=== PATIENT | male | born 1990 | race Caucasian/White ===

== ENCOUNTER 2018-05-22 14:01 | Inpatient (IN) | payer OTHER ==
[2018-05-22 15:07] VITALS: BMI 19.9
--- NOTE | 2018-05-22 16:24 | HP ---
CIWA Score Nausea/Vomitin Muscle Tremors: None Anxiety: 4-Mod. Anxious/Guarded Agitation: 0-Normal Activity Paroxysmal Sweats: 2 Orientation: 0-Oriented Tacttile Disturbances: 4-Moderate Hallucinations Auditory Disturbances: 2-Mild Harshness/Frighten Visual Disturbances: 2-Mild Sensitivity Headache: 2-Mild CIWA-Ar Total Score: 21 - Admission Criteria OASAS Guidelines: Admission for Medically Managed Detox: Requires at least one of the followin. CIWA greater than 12 2. Seizures within the past 24 hours 3. Delirium tremens within the past 24 hours 4. Hallucinations within the past 24 hours 5. Acute intervention needed for co occurring medical disorder 6. Acute intervention needed for co occurring psychiatric disorder 7. Severe withdrawal that cannot be handled at a lower level of care (continued vomiting, continued diarrhea, abnormal vital signs) requiring intravenous medication and/or fluids 8. Admission ROS S - HPI Allergies/Adverse Reactions: Allergies Allergy/AdvReac Type Severity Reaction Status Date / Time No Known Allergies Allergy Verified 05/22/18 15:52 History of Present Illness: patient here requesting detox from etoh use , reports he binge- drinks between 4 -10 days , latest use yesterday 2-3 pints/day x 9 days , reports tremors and other symptoms as above if not drinking , drinks " any time of day " , drinking heavily since age 18, prior detox x 5-6 , most recently October 2017 @ [facility] , rehab x 6 , most recently October- Feb 2018 [facility] , relapse after d/c , reports blackouts while drinking , denies withdrawal seizures, + falls while intoxicated , denies injuries to self or others, does not drive, license suspended 1 yr ago in [place] , incarcerated x 6 months , does not have court pending . utox neg for all [place] 0.000 tobacco : denies pmhx : denies pshx :denies psych : denies shx : lives w/ mother and brother , does not work Exam Limitations: No Limitations - Ebola screening Have you traveled outside of the country in the last 21 days: No Have you had contact with anyone from an Ebola affected area: No Have you been sick,other than usual withdrawal symptoms: No Do you have a fever: No - Review of Systems Constitutional: See HPI EENT: reports: Other (no glasses , no vision issues) Respiratory: reports: No Symptoms reported Cardiac: reports: No Symptoms Reported GI: reports: See HPI : reports: Other (reports difficulty urinating since yesterday , feels weak all over his body) Musculoskeletal: reports: No Symptoms Reported Integumentary: reports: No Symptoms Reported Neuro: reports: Paresthesia, Tingling, Tremors Psychiatric: reports: Orientated x3, Anxious Patient History - Patient Medical History Hx Asthma: No Hx Chronic Obstructive Pulmonary Disease (COPD): No Hx Cardiac Disorders: No Hx Hypertension: No Hx Seizures: No Hx Diabetes: No Hx Gastrointestinal Disorders: No Hx Genitourinary Disorders: No Hx Sexually Transmitted Disorders: No Hx Renal Disease (ESRD): No Hx Depression: No Hx Suicide Attempt: No Hx Schizophrenia: No - Patient Surgical History Past Surgical History: No Hx Neurologic Surgery: No Hx Cataract Extraction: No Hx Cardiac Surgery: No Hx Lung Surgery: No Hx Breast Surgery: No Hx Breast Biopsy: No Hx Abdominal Surgery: No Hx Appendectomy: No Hx Cholecystectomy: No Hx Genitourinary Surgery: No Hx Section: No Hx Orthopedic Surgery: No Anesthesia Reaction: No - PPD History Previous Implant?: Yes Documented Results: Negative w/o proof Implanted On Prior R Admission?: No Results: NEGATIVE - Smoking Cessation Smoking history: Never smoked Have you smoked in the past 12 months: No Hx Chewing Tobacco Use: No Initiated information on smoking cessation: No - Substances Abused Alcohol Route: Oral Frequency: Daily Amount used: 2-3 PINTS OF VODKA Age of first use: 11 Date of Last Use: 05/21/18 Family Disease History - Family Disease History Family History: Denies Family Disease History: Other: Grandparent (uncles : etoh abuse ) Admission Physical Exam [facility] - Vital Signs Vital Signs: Vital Signs - 24 hr 05/22/18 15:05 Temperature 98.9 F Pulse Rate 88 Respiratory 17 Rate Blood Pressure 155/93 - Physical General Appearance: Yes: Moderate Distress, Tremorous, Anxious HEENTM: Yes: EOMI, Normocephalic, Pharynx Normal Respiratory: Yes: Chest Non-Tender, Wheezing Neck: Yes: No masses,lesions,Nodules, Trachea in good position Breast: Yes: Breast Exam Deferred Cardiology: Yes: Regular Rhythm, Regular Rate, S1, S2, Tachycardia Abdominal: Yes: Soft Genitourinary: Yes: Hesitency Back: Yes: Normal Inspection Musculoskeletal: Yes: full range of Motion Extremities: Yes: Normal Capillary Refill, Normal Inspection, Tremors Neurological: Yes: Motor Strength 5/5 Integumentary: Yes: Normal Color, Dry, Warm, Rash (reji palms of hands states has had for a while when he drinks) - Diagnostic (1) Alcohol dependence with withdrawal Current Visit: Yes Status: Acute Qualifiers: Complication of substance-induced condition: with perceptual disturbance Qualified Code(s): F10.232 - Alcohol dependence with withdrawal with perceptual disturbance BHS Breath Alcohol Content Breath Alcohol Content: 0 Urine Drug Screen - Results Drug Screen Negative: Yes
[2018-05-22] MEDS ORDERED: MAGNESIUM CITRATE 300 ML BOTTLE PO PRN (16:31)
[2018-05-22] MEDS ORDERED: guaiFENesin/D-METHORPHAN HB 10 ML UNIT-DOSE CUPS PO PRN (16:31)
[2018-05-22] MEDS ORDERED: IBUPROFEN 400 MG TABLET (FP) PO PRN (16:31)
[2018-05-22] MEDS ORDERED: MAGNESIUM HYDROX 2400MG/30ML ORAL SUSPENSION 30 ML CUP PO PRN (16:31)
[2018-05-22] MEDS ORDERED: P-EPHED 60MG/TRIPROLIDI 2.5MG TABLET PO PRN (16:31)
[2018-05-22] MEDS ORDERED: ACETAMINOPHEN 325 MG TABLET (FP) PO PRN (16:31)
[2018-05-22] MEDS ORDERED: MAG HYDROX/AL HYDROX/SIMETH 30 ML UNIT-DOSE CUP PO PRN (16:31)
[2018-05-22] MEDS ORDERED: MENTHOL/PHENOL 1 EACH UD MM PRN (16:31)
[2018-05-22] MEDS ORDERED: ALBUTEROL SO4 0.083% IH SOL 2.5 MG/3 ML VIAL.NEB. NEB PRN (16:32)
[2018-05-22] MEDS: chlordiazePOXIDE HCL 25 MG CAPSULE PO PRN (17:53)
[2018-05-22] MEDS: THIAMINE HCL 100 MG TABLET (FP) PO SCH (22:17)
[2018-05-22] MEDS: chlordiazePOXIDE HCL 25 MG CAPSULE PO SCH (22:17)
[2018-05-22 23:22] LABS: URINE APPEARANCE CLEAR; URINE BILIRUBIN NEGATIVE (<2.0 mg/dL); URINE COLOR DKYELLOW; URINE GLUCOSE (UA) NEGATIVE (NEGATIVE); URINE KETONE 1+ (NEGATIVE); URINE LEUK ESTERASE NEGATIVE (NEGATIVE); URINE NITRITE NEGATIVE (NEGATIVE); URINE PROTEIN 2+ (NEGATIVE)
[2018-05-22 23:32] LABS: EPI CELLS RARE /HPF (FEW); URINE MUCUS FEW
[2018-05-23] MEDS: chlordiazePOXIDE HCL 25 MG CAPSULE PO SCH ×4 (05:33→22:25)
[2018-05-23] MEDS: PRENATAL VITAMINS W/ FOLIC ACID TABLET (FP) PO SCH (10:20)
--- NOTE | 2018-05-23 10:42 | PN ---
S CIWA - CIWA Score Nausea/Vomitin-Mild Nausea/No Vomiting Muscle Tremors: 3 Anxiety: 1-Mildly Anxious Agitation: 0-Normal Activity Paroxysmal Sweats: 1-Minimal Palms Moist Orientation: 0-Oriented Tacttile Disturbances: 0-None Auditory Disturbances: 0-None Visual Disturbances: 0-None Headache: 0-None Present CIWA-Ar Total Score: 6 BHS Progress Note (SOAP) Subjective: C/o dizziness when moves quickly from side to side.. Nausea w/o vomiting. No diarrhea. Objective: A&O x 3. Abd S/NT. BS+; Gait steady. Mild tremors of hands. Vital Signs - 24 hr 05/22/18 05/22/18 05/22/18 15:05 17:43 21:28 Temperature 98.9 F 98.2 F 98.6 F Pulse Rate 88 74 81 Respiratory 17 16 18 Rate Blood Pressure 155/93 151/94 142/96 05/23/18 05/23/18 05/23/18 00:30 03:30 05:58 Temperature 98.1 F Pulse Rate 81 Respiratory 18 18 18 Rate Blood Pressure 147/95 05/23/18 10:32 Temperature 97.8 F Pulse Rate 94 H Respiratory 18 Rate Blood Pressure 137/93 Laboratory Last Values WBC 5.8 K/mm3 (4.0-10.0) 05/23/18 07:50 RBC 4.84 M/mm3 (4.00-5.60) 05/23/18 07:50 Hgb 14.6 GM/dL (11.7-16.9) 05/23/18 07:50 Hct 43.9 % (35.4-49) 05/23/18 07:50 MCV 90.5 fl (80-96) 05/23/18 07:50 MCH 30.1 pg (25.7-33.7) 05/23/18 07:50 MCHC 33.3 g/dl (32.0-35.9) 05/23/18 07:50 RDW 13.3 % (11.9-15.9) 05/23/18 07:50 Plt Count 163 K/MM3 (134-434) 05/23/18 07:50 MPV 8.2 fl (7.5-11.1) 05/23/18 07:50 Sodium 137 mmol/L (136-145) 05/23/18 07:50 Potassium 4.0 mmol/L (3.5-5.1) 05/23/18 07:50 Chloride 102 mmol/L (98-107) 05/23/18 07:50 Carbon Dioxide 30 mmol/L (21-32) 05/23/18 07:50 Anion Gap 5 MMOL/L (8-16) L 05/23/18 07:50 BUN 17 mg/dL (7-18) 05/23/18 07:50 Creatinine 0.9 mg/dL (0.55-1.3) 05/23/18 07:50 Creat Clearance w eGFR > 60 (>60) 05/23/18 07:50 Random Glucose 96 mg/dL (74-106) 05/23/18 07:50 Calcium 9.4 mg/dL (8.5-10.1) 05/23/18 07:50 Total Bilirubin 0.9 mg/dL (0.2-1) 05/23/18 07:50 AST 50 U/L (15-37) H 05/23/18 07:50 ALT 59 U/L (13-61) 05/23/18 07:50 Alkaline Phosphatase 81 U/L (45-117) 05/23/18 07:50 Total Protein 7.6 g/dl (6.4-8.2) 05/23/18 07:50 Albumin 4.1 g/dl (3.4-5.0) 05/23/18 07:50 Urine Color Dkyellow 05/22/18 23:00 Urine Appearance Clear 05/22/18 23:00 Urine pH 7.0 (5.0-8.0) 05/22/18 23:00 Ur Specific [place] 1.028 (1.010-1.035) 05/22/18 23:00 Urine Protein 2+ (NEGATIVE) H 05/22/18 23:00 Urine Glucose (UA) Negative (NEGATIVE) 05/22/18 23:00 Urine Ketones 1+ (NEGATIVE) H 05/22/18 23:00 Urine Blood Negative (NEGATIVE) 05/22/18 23:00 Urine Nitrite Negative (NEGATIVE) 05/22/18 23:00 Urine Bilirubin Negative (<2.0 mg/dL) 05/22/18 23:00 Urine Urobilinogen 2.0 mg/dL (0.2-1.0) 05/22/18 23:00 Ur Leukocyte Esterase Negative (NEGATIVE) 05/22/18 23:00 Urine WBC (Auto) 1 /hpf (3-5) 05/22/18 23:00 Urine RBC (Auto) 2 /hpf (0-3) 05/22/18 23:00 Ur Epithelial Cells Rare /HPF (FEW) 05/22/18 23:00 Urine Mucus Few 05/22/18 23:00 Labs reviewed. Assessment: Withdrawal symptoms. Elevated urine sp. gravity. Dizziness Plan: Continue detox. Encourage 2 pitchers water daily. Encourage to change positions slowly to avoid dizziness and notify staff if dizziness persists.
[2018-05-23 10:46] LABS: HEMATOCRIT 43.9 % (35.4-49); HEMOGLOBIN 14.6 GM/dL (11.7-16.9); MCH 30.1 pg (25.7-33.7); MCHC 33.3 g/dl (32.0-35.9); MEAN CELL VOLUME 90.5 fl (80-96); MEAN PLT VOLUME 8.2 fl (7.5-11.1); PLATELET COUNT 163 K/MM3 (134-434); RBC 4.84 M/mm3 (4.00-5.60); RDW 13.3 % (11.9-15.9); WHITE BLOOD COUNT 5.8 K/mm3 (4.0-10.0)
[2018-05-23 10:57] LABS: ALBUMIN 4.1 g/dl (3.4-5.0); ALK PHOS 81 U/L (45-117); ANION GAP 5 MMOL/L (8-16); BILIRUBIN,TOTAL 0.9 mg/dL (0.2-1); BLOOD UREA NITROGEN 17 mg/dL (7-18); CALCIUM 9.4 mg/dL (8.5-10.1); CHLORIDE 102 mmol/L (98-107); CO2 30 mmol/L (21-32); CREATININE 0.9 mg/dL (0.55-1.3); GLUCOSE,RANDOM 96 mg/dL (74-106); SGOT/AST 50 U/L (15-37); SGPT/ALT 59 U/L (13-61); SODIUM 137 mmol/L (136-145); TOT PROT 7.6 g/dl (6.4-8.2)
[2018-05-23] MEDS: THIAMINE HCL 100 MG TABLET (FP) PO SCH (22:25)
[2018-05-23] MEDS: MELATONIN 5 MG TABLETS PO PRN (22:25)
[2018-05-24] MEDS: chlordiazePOXIDE HCL 25 MG CAPSULE PO SCH ×3 (06:24→17:51)
[2018-05-24] MEDS: PRENATAL VITAMINS W/ FOLIC ACID TABLET (FP) PO SCH (10:11)
--- NOTE | 2018-05-24 11:29 | PN ---
S CIWA - CIWA Score Nausea/Vomitin-Mild Nausea/No Vomiting Muscle Tremors: 2 Anxiety: 1-Mildly Anxious Agitation: 1-Slight > Activity Paroxysmal Sweats: 1-Minimal Palms Moist Orientation: 0-Oriented Tacttile Disturbances: 0-None Auditory Disturbances: 0-None Visual Disturbances: 0-None Headache: 1-Very Mild CIWA-Ar Total Score: 7 BHS Progress Note (SOAP) Subjective: tremor sweat restlessness had good night sleep Objective: 05/24/18 11:32 Vital Signs Temperature 98.1 F 05/24/18 10:00 Pulse Rate 86 05/24/18 10:00 Respiratory Rate 18 05/24/18 10:00 Blood Pressure 138/93 05/24/18 10:00 O2 Sat by Pulse Oximetry (%) Laboratory Last Values WBC 5.8 K/mm3 (4.0-10.0) 05/23/18 07:50 RBC 4.84 M/mm3 (4.00-5.60) 05/23/18 07:50 Hgb 14.6 GM/dL (11.7-16.9) 05/23/18 07:50 Hct 43.9 % (35.4-49) 05/23/18 07:50 MCV 90.5 fl (80-96) 05/23/18 07:50 MCH 30.1 pg (25.7-33.7) 05/23/18 07:50 MCHC 33.3 g/dl (32.0-35.9) 05/23/18 07:50 RDW 13.3 % (11.9-15.9) 05/23/18 07:50 Plt Count 163 K/MM3 (134-434) 05/23/18 07:50 MPV 8.2 fl (7.5-11.1) 05/23/18 07:50 Sodium 137 mmol/L (136-145) 05/23/18 07:50 Potassium 4.0 mmol/L (3.5-5.1) 05/23/18 07:50 Chloride 102 mmol/L (98-107) 05/23/18 07:50 Carbon Dioxide 30 mmol/L (21-32) 05/23/18 07:50 Anion Gap 5 MMOL/L (8-16) L 05/23/18 07:50 BUN 17 mg/dL (7-18) 05/23/18 07:50 Creatinine 0.9 mg/dL (0.55-1.3) 05/23/18 07:50 Creat Clearance w eGFR > 60 (>60) 05/23/18 07:50 Random Glucose 96 mg/dL (74-106) 05/23/18 07:50 Calcium 9.4 mg/dL (8.5-10.1) 05/23/18 07:50 Total Bilirubin 0.9 mg/dL (0.2-1) 05/23/18 07:50 AST 50 U/L (15-37) H 05/23/18 07:50 ALT 59 U/L (13-61) 05/23/18 07:50 Alkaline Phosphatase 81 U/L (45-117) 05/23/18 07:50 Total Protein 7.6 g/dl (6.4-8.2) 05/23/18 07:50 Albumin 4.1 g/dl (3.4-5.0) 05/23/18 07:50 Urine Color Dkyellow 05/22/18 23:00 Urine Appearance Clear 05/22/18 23:00 Urine pH 7.0 (5.0-8.0) 05/22/18 23:00 Ur Specific [place] 1.028 (1.010-1.035) 05/22/18 23:00 Urine Protein 2+ (NEGATIVE) H 05/22/18 23:00 Urine Glucose (UA) Negative (NEGATIVE) 05/22/18 23:00 Urine Ketones 1+ (NEGATIVE) H 05/22/18 23:00 Urine Blood Negative (NEGATIVE) 05/22/18 23:00 Urine Nitrite Negative (NEGATIVE) 05/22/18 23:00 Urine Bilirubin Negative (<2.0 mg/dL) 05/22/18 23:00 Urine Urobilinogen 2.0 mg/dL (0.2-1.0) 05/22/18 23:00 Ur Leukocyte Esterase Negative (NEGATIVE) 05/22/18 23:00 Urine WBC (Auto) 1 /hpf (3-5) 05/22/18 23:00 Urine RBC (Auto) 2 /hpf (0-3) 05/22/18 23:00 Ur Epithelial Cells Rare /HPF (FEW) 05/22/18 23:00 Urine Mucus Few 05/22/18 23:00 RPR Titer Nonreactive (NONREACTIVE) 05/23/18 07:50 lab noted Assessment: 05/24/18 11:33 withdrawal sx Plan: continue detox
[2018-05-24] MEDS: chlordiazePOXIDE 5 MG CAPSULE PO SCH (22:11)
[2018-05-24] MEDS: MELATONIN 5 MG TABLETS PO PRN (22:11)
[2018-05-24] MEDS: THIAMINE HCL 100 MG TABLET (FP) PO SCH (22:11)
[2018-05-25] MEDS: chlordiazePOXIDE HCL 25 MG CAPSULE PO PRN (01:53)
[2018-05-25] MEDS: chlordiazePOXIDE 5 MG CAPSULE PO SCH ×2 (06:12→10:19)
[2018-05-25 07:33] VITALS: PULSE 82
[2018-05-25 09:03] VITALS: BP 119/72; TEMP 98.1
[2018-05-25] MEDS: PRENATAL VITAMINS W/ FOLIC ACID TABLET (FP) PO SCH (10:18)
--- NOTE | 2018-05-25 10:59 | DS ---
[facility] Detox Discharge Summary Admission Date: 05/22/18 Discharge Date: 05/25/18 - History Present History: Alcohol Dependence Additional Comments: 27 years old male admitted on 05/22/18 for alcohol withdrawal sx stated that feeling better today with manageable alcohol withdrawal sx [facility] for aftercare arrangement that the patient is stable for aftercare today - Physical Exam Results Vital Signs: Vital Signs Temperature 98.1 F 05/25/18 09:02 Pulse Rate 82 05/25/18 09:02 Respiratory Rate 18 05/25/18 09:02 Blood Pressure 119/72 05/25/18 09:02 O2 Sat by Pulse Oximetry (%) Pertinent Admission Physical Exam Findings: alcohol withdrawal sx Vital Signs Temperature 98.1 F 05/25/18 09:02 Pulse Rate 82 05/25/18 09:02 Respiratory Rate 18 05/25/18 09:02 Blood Pressure 119/72 05/25/18 09:02 O2 Sat by Pulse Oximetry (%) Laboratory Last Values WBC 5.8 K/mm3 (4.0-10.0) 05/23/18 07:50 RBC 4.84 M/mm3 (4.00-5.60) 05/23/18 07:50 Hgb 14.6 GM/dL (11.7-16.9) 05/23/18 07:50 Hct 43.9 % (35.4-49) 05/23/18 07:50 MCV 90.5 fl (80-96) 05/23/18 07:50 MCH 30.1 pg (25.7-33.7) 05/23/18 07:50 MCHC 33.3 g/dl (32.0-35.9) 05/23/18 07:50 RDW 13.3 % (11.9-15.9) 05/23/18 07:50 Plt Count 163 K/MM3 (134-434) 05/23/18 07:50 MPV 8.2 fl (7.5-11.1) 05/23/18 07:50 Sodium 137 mmol/L (136-145) 05/23/18 07:50 Potassium 4.0 mmol/L (3.5-5.1) 05/23/18 07:50 Chloride 102 mmol/L (98-107) 05/23/18 07:50 Carbon Dioxide 30 mmol/L (21-32) 05/23/18 07:50 Anion Gap 5 MMOL/L (8-16) L 05/23/18 07:50 BUN 17 mg/dL (7-18) 05/23/18 07:50 Creatinine 0.9 mg/dL (0.55-1.3) 05/23/18 07:50 Creat Clearance w eGFR > 60 (>60) 05/23/18 07:50 Random Glucose 96 mg/dL (74-106) 05/23/18 07:50 Calcium 9.4 mg/dL (8.5-10.1) 05/23/18 07:50 Total Bilirubin 0.9 mg/dL (0.2-1) 05/23/18 07:50 AST 50 U/L (15-37) H 05/23/18 07:50 ALT 59 U/L (13-61) 05/23/18 07:50 Alkaline Phosphatase 81 U/L (45-117) 05/23/18 07:50 Total Protein 7.6 g/dl (6.4-8.2) 05/23/18 07:50 Albumin 4.1 g/dl (3.4-5.0) 05/23/18 07:50 Urine Color Dkyellow 05/22/18 23:00 Urine Appearance Clear 05/22/18 23:00 Urine pH 7.0 (5.0-8.0) 05/22/18 23:00 Ur Specific [place] 1.028 (1.010-1.035) 05/22/18 23:00 Urine Protein 2+ (NEGATIVE) H 05/22/18 23:00 Urine Glucose (UA) Negative (NEGATIVE) 05/22/18 23:00 Urine Ketones 1+ (NEGATIVE) H 05/22/18 23:00 Urine Blood Negative (NEGATIVE) 05/22/18 23:00 Urine Nitrite Negative (NEGATIVE) 05/22/18 23:00 Urine Bilirubin Negative (<2.0 mg/dL) 05/22/18 23:00 Urine Urobilinogen 2.0 mg/dL (0.2-1.0) 05/22/18 23:00 Ur Leukocyte Esterase Negative (NEGATIVE) 05/22/18 23:00 Urine WBC (Auto) 1 /hpf (3-5) 05/22/18 23:00 Urine RBC (Auto) 2 /hpf (0-3) 05/22/18 23:00 Ur Epithelial Cells Rare /HPF (FEW) 05/22/18 23:00 Urine Mucus Few 05/22/18 23:00 RPR Titer Nonreactive (NONREACTIVE) 05/23/18 07:50 lab noted - Treatment Hospital Course: Detox Protocol Followed, Detoxed Safely, Responded well, Discharged Condition Good, Rehab Referral Accepted Patient has Accepted a Rehab Referral to: [facility] rehab - Medication Discharge Medications: Ambulatory Orders NK [No Known Home Medication] 05/22/18 - Diagnosis (1) Alcohol dependence with withdrawal Status: Acute Qualifiers: Complication of substance-induced condition: with perceptual disturbance Qualified Code(s): F10.232 - Alcohol dependence with withdrawal with perceptual disturbance - AMA Did Patient Leave Against Medical Advice: No
[2018-05-25] MEDS ORDERED: chlordiazePOXIDE HCL 10 MG CAPSULE PO SCH (23:00)
== END 2018-05-25 11:30 | disposition home or self-care (01) | DRG 775 ==
LOC: YASAS 14:01 → Y6N 16:43
PROC: HZ2ZZZZ Detoxification Services for Substance Abuse Treatment (ICD-10-PCS; principal; 2018-05-22)
DX: F10.232 Alcohol dependence with withdrawal with perceptual disturbance (principal)
CPT/HCPCS: 36415; 80053; 81003; 81015; 85027; 86593

== ENCOUNTER 2018-09-11 14:13 | Inpatient (IN) | payer OTHER ==
[2018-09-11 15:19] VITALS: BMI 20.2
--- NOTE | 2018-09-11 16:16 | HP ---
CIWA Score Nausea/Vomitin-Int. Nausea w/Dry Heave Muscle Tremors: 2 Anxiety: 4-Mod. Anxious/Guarded Agitation: 1-Slight > Activity Paroxysmal Sweats: 1-Minimal Palms Moist Orientation: 3-Disoriented Date>2 days Tacttile Disturbances: 2-Mild Itch/Numbness/Burn Auditory Disturbances: 1-Very Mild Visual Disturbances: 2-Mild Sensitivity Headache: 4-Moderately Severe CIWA-Ar Total Score: 24 - Admission Criteria OASAS Guidelines: Admission for Medically Managed Detox: Requires at least one of the followin. CIWA greater than 12 2. Seizures within the past 24 hours 3. Delirium tremens within the past 24 hours 4. Hallucinations within the past 24 hours 5. Acute intervention needed for co occurring medical disorder 6. Acute intervention needed for co occurring psychiatric disorder 7. Severe withdrawal that cannot be handled at a lower level of care (continued vomiting, continued diarrhea, abnormal vital signs) requiring intravenous medication and/or fluids 8. Patient presents the following: CIWA greater than 12 Admission Criteria Met: Admission criteria met Admission ROS [facility] Allergies/Adverse Reactions: Allergies Allergy/AdvReac Type Severity Reaction Status Date / Time No Known Allergies Allergy Verified 05/22/18 15:52 History of Present Illness: patient here requesting detox from etoh use , reports drinking " all day every day " , 4-5 pints liquor , relapsed 1 month ago starts drinking in the mornings , reports he binge- drinks for 1-2 weeks at a time, latest use yesterday 2-3 pints/day x 1 week , reports tremors and anxiety if not drinking , drinking heavily since age 18, prior detox x 5-6 , most recently April 2018 @ this facility , rehab x 6 , most recently October- Feb 2018 [facility] , relapse after d/c , reports blackouts while drinking , denies withdrawal seizures, + falls while intoxicated , denies injuries to self or others, does not drive, license suspended 1 yr ago in [place] , incarcerated x 6 months , does not have court pending . utox neg for all [place] 0.000 tobacco : denies pmhx : denies pshx :denies psych : denies shx : lives w/ mother and brother , does not work Exam Limitations: Clinical Condition, Intoxication - Ebola screening Have you traveled outside of the country in the last 21 days: No Have you had contact with anyone from an Ebola affected area: No Have you been sick,other than usual withdrawal symptoms: No Do you have a fever: No - Review of Systems Constitutional: See HPI EENT: reports: See HPI Respiratory: reports: Shortness of Breath (reports intermittently) Cardiac: reports: No Symptoms Reported GI: reports: See HPI : reports: No Symptoms Reported Musculoskeletal: reports: Muscle Pain Integumentary: reports: No Symptoms Reported Neuro: reports: Headache Endocrine: reports: No Symptoms Reported Psychiatric: reports: Orientated x3, Anxious, Disorientated Patient History - Patient Medical History Hx Asthma: No Hx Chronic Obstructive Pulmonary Disease (COPD): No Hx Cardiac Disorders: No Hx Hypertension: No Hx Seizures: No Hx Diabetes: No Hx Gastrointestinal Disorders: No Hx Genitourinary Disorders: No Hx Sexually Transmitted Disorders: No Hx Renal Disease (ESRD): No Hx Depression: No Hx Suicide Attempt: No Hx Schizophrenia: No - Patient Surgical History Past Surgical History: No Hx Neurologic Surgery: No Hx Cataract Extraction: No Hx Cardiac Surgery: No Hx Lung Surgery: No Hx Breast Surgery: No Hx Breast Biopsy: No Hx Abdominal Surgery: No Hx Appendectomy: No Hx Cholecystectomy: No Hx Genitourinary Surgery: No Hx Section: No Hx Orthopedic Surgery: No Anesthesia Reaction: No - PPD History Date: 05/24/18 Results: NEGATIVE - Smoking Cessation Smoking history: Never smoked Have you smoked in the past 12 months: No Hx Chewing Tobacco Use: No - Substances Abused Alcohol Route: Oral Frequency: Daily Amount used: 4-5 pints Age of first use: 11 Date of Last Use: 09/11/18 Family Disease History - Family Disease History Family Disease History: Other: Grandparent (uncles : etoh abuse ) Admission Physical Exam BHS - Vital Signs Vital Signs: Vital Signs - 24 hr 09/11/18 15:18 Temperature 98.4 F Pulse Rate 86 Respiratory 18 Rate Blood Pressure 144/92 - Physical General Appearance: Yes: Severe Distress, Alcohol on Breath, Intoxicated, Thin, Anxious HEENTM: Yes: EOMI, Hearing grossly Normal, Normocephalic, Normal Voice Respiratory: Yes: Chest Non-Tender, Lungs Clear, Normal Breath Sounds Neck: Yes: No masses,lesions,Nodules, Trachea in good position Cardiology: Yes: Regular Rhythm, Regular Rate, S1, S2 Abdominal: Yes: Non Tender, Soft Back: Yes: Normal Inspection Musculoskeletal: Yes: Gait Steady Extremities: Yes: Non-Tender, Tremors Neurological: Yes: Motor Strength 5/5, Normal Mood/Affect Integumentary: Yes: Normal Color, Warm - Diagnostic (1) Alcohol dependence with withdrawal Current Visit: Yes Status: Acute Qualifiers: Complication of substance-induced condition: uncomplicated Qualified Code(s ): F10.230 - Alcohol dependence with withdrawal, uncomplicated (2) Alcohol intoxication Current Visit: Yes Status: Acute BHS Breath Alcohol Content Breath Alcohol Content: 0.304 Urine Drug Screen - Results Drug Screen Negative: Yes Inpatient Rehab Admission - Rehab Decision to Admit Inpatient rehab admission?: No
[2018-09-11] MEDS ORDERED: ACETAMINOPHEN 325 MG TABLET (FP) PO PRN ×2 (16:22)
[2018-09-11] MEDS ORDERED: MELATONIN 5 MG TABLETS PO PRN (16:22)
[2018-09-11] MEDS ORDERED: MAGNESIUM CITRATE 300 ML BOTTLE PO PRN (16:22)
[2018-09-11] MEDS ORDERED: MAGNESIUM HYDROX 2400MG/30ML ORAL SUSPENSION 30 ML CUP PO PRN ×2 (16:22→16:27)
[2018-09-11] MEDS ORDERED: IBUPROFEN 400 MG TABLET (FP) PO PRN (16:22)
[2018-09-11] MEDS ORDERED: chlordiazePOXIDE HCL 25 MG CAPSULE PO PRN (16:22)
[2018-09-11] MEDS ORDERED: PROCHLORPERAZINE MALEATE 5 MG TABLET PO PRN (16:22)
[2018-09-11] MEDS ORDERED: MAG HYDROX/AL HYDROX/SIMETH 30 ML UNIT-DOSE CUP PO PRN (16:22)
[2018-09-11] MEDS ORDERED: MENTHOL/PHENOL 1 EACH UD MM PRN (16:22)
[2018-09-11] MEDS ORDERED: TRIMETHOBENZAMIDE HCL 200MG/2ML INJ IM ONE (17:30)
[2018-09-11] MEDS: chlordiazePOXIDE HCL 25 MG CAPSULE PO SCH ×2 (17:49→22:13)
[2018-09-11] MEDS ORDERED: THIAMINE HCL 100 MG TABLET (FP) PO SCH (22:00)
[2018-09-12] MEDS: chlordiazePOXIDE HCL 25 MG CAPSULE PO SCH ×2 (05:12→10:26)
[2018-09-12] MEDS ORDERED: PRENATAL VITAMINS W/ FOLIC ACID TABLET (FP) PO SCH (10:00)
[2018-09-12 10:52] LABS: ALBUMIN 4.2 g/dl (3.4-5.0); ALK PHOS 78 U/L (45-117); ANION GAP 9 MMOL/L (8-16); BILIRUBIN,TOTAL 0.6 mg/dL (0.2-1); BLOOD UREA NITROGEN 8 mg/dL (7-18); CALCIUM 9.1 mg/dL (8.5-10.1); CHLORIDE 102 mmol/L (98-107); CO2 28 mmol/L (21-32); CREATININE 0.9 mg/dL (0.55-1.3); GLUCOSE,RANDOM 89 mg/dL (74-106); POTASSIUM 3.3 mmol/L (3.5-5.1); SGOT/AST 60 U/L (15-37); SGPT/ALT 41 U/L (13-61); SODIUM 139 mmol/L (136-145); TOT PROT 7.7 g/dl (6.4-8.2)
[2018-09-12 11:05] LABS: HEMATOCRIT 40.9 % (35.4-49); HEMOGLOBIN 14.7 GM/dL (11.7-16.9); MCH 31.7 pg (25.7-33.7); MCHC 35.8 g/dl (32.0-35.9); MEAN CELL VOLUME 88.6 fl (80-96); PLATELET COUNT 222 K/MM3 (134-434); RBC 4.62 M/mm3 (4.00-5.60); RDW 13.2 % (11.9-15.9); WHITE BLOOD COUNT 4.7 K/mm3 (4.0-10.0)
[2018-09-12 13:47] VITALS: TEMP 98.7
--- NOTE | 2018-09-12 15:45 | PN ---
S CIWA - CIWA Score Nausea/Vomitin Muscle Tremors: None Anxiety: 3 Agitation: 1-Slight > Activity Paroxysmal Sweats: 3 Orientation: 0-Oriented Tacttile Disturbances: 3-Moderate Itch/Numb/Burn Auditory Disturbances: 2-Mild Harshness/Frighten Visual Disturbances: 0-None Headache: 0-None Present CIWA-Ar Total Score: 17 BHS Progress Note (SOAP) Subjective: Interrupted Sleep, Anxious, Stomach Cramping, Vomiting, Poor Appetite. Objective: PATIENT A & O X 3. IN NO ACUTE DISTRESS. 09/12/18 15:42 Vital Signs Temperature 98.7 F 09/12/18 13:46 Pulse Rate 104 H 09/12/18 14:00 Respiratory Rate 18 09/12/18 13:46 Blood Pressure 125/72 09/12/18 13:46 O2 Sat by Pulse Oximetry (%) Laboratory Tests 09/12/18 09/12/18 09/12/18 07:30 07:30 07:30 WBC 4.7 RBC 4.62 Hgb 14.7 Hct 40.9 MCV 88.6 MCH 31.7 MCHC 35.8 RDW 13.2 Plt Count 222 D MPV 8.0 Sodium 139 Potassium 3.3 L Chloride 102 Carbon Dioxide 28 Anion Gap 9 BUN 8 Creatinine 0.9 Creat Clearance w eGFR 100.48 Random Glucose 89 Calcium 9.1 Total Bilirubin 0.6 AST 60 H ALT 41 Alkaline Phosphatase 78 Total Protein 7.7 Albumin 4.2 RPR Titer Nonreactive LABS NOTED. Assessment: 09/12/18 15:42 WITHDRAWAL SYMPTOMS. HYPOKALEMIA. 09/12/18 15:44 Plan: CONTINUE DETOX. INCREASE DAILY PO FLUID INTAKE. K-DUR, 20 MEQ PO BID FOR HYPOKALEMIA. RE-CHECK K LEVEL ON 09/14/2018.
[2018-09-12] MEDS ORDERED: chlordiazePOXIDE HCL 25 MG CAPSULE PO SCH (17:00)
[2018-09-12 17:32] VITALS: BP 129/73; PULSE 73
--- NOTE | 2018-09-12 17:34 | DS ---
[facility] Detox Discharge Summary Admission Date: 09/11/18 Discharge Date: 09/12/18 - History Present History: Alcohol Dependence - Physical Exam Results Vital Signs: Vital Signs Temperature 98.7 F 09/12/18 17:31 Pulse Rate 73 09/12/18 17:31 Respiratory Rate 18 09/12/18 17:31 Blood Pressure 129/73 09/12/18 17:31 O2 Sat by Pulse Oximetry (%) - Medication Discharge Medications: Ambulatory Orders NK [No Known Home Medication] 05/22/18 - AMA Did Patient Leave Against Medical Advice: Yes
--- NOTE | 2018-09-12 17:34 | PN ---
S Progress Note Note: NOTIFIED BY NURSING THAT PATIENT REQUESTED TO SIGN OUT AMA. PATIENT SEEN BY MANAGEMENT TECHNICIAN. PATIENT STATED " I FEEL BETTER AND WANT TO CONTINUE TREATMENT OUT PATIENT". PATIENT EXPLAINED RISK FACTORS OF RELAPSE AND POSSIBLE WITH SIGNING OUT AMA. DESPITE ENCOURAGE PATIENT REFUSED TO STAY AND COMPLETE TREATMENT. PATIENT ENCOURAGE TO FOLLOW UP WITH AA/NA TO PREVENT RELAPSE AND ENCOURAGE TO FOLLOW UP WITH PCP WITHIN 72 HOURS OF DISCHARGE.
[2018-09-12] MEDS ORDERED: POTASSIUM CHLORIDE TABS 20 MEQ TABLET.ER (FP) PO SCH (18:00)
[2018-09-13] MEDS ORDERED: chlordiazePOXIDE HCL 10 MG CAPSULE PO SCH (17:00)
[2018-09-13] MEDS ORDERED: chlordiazePOXIDE HCL 10 MG CAPSULE PO PRN (17:00)
[2018-09-14] MEDS ORDERED: chlordiazePOXIDE HCL 10 MG CAPSULE PO SCH (17:00)
== END 2018-09-12 17:12 | disposition left against medical advice (07) | DRG 770 ==
LOC: YASAS 14:13 → Y3N 16:41
PROVIDERS: ADMIT Surgery; ATTEND Surgery
PROC: HZ2ZZZZ Detoxification Services for Substance Abuse Treatment (ICD-10-PCS; principal; 2018-09-11)
DX: F10.230 Alcohol dependence with withdrawal, uncomplicated (principal); E87.6 Hypokalemia
CPT/HCPCS: 36415; 80053; 85027; 86593